=== PATIENT | male | born 1955 | race Caucasian/White ===

== ENCOUNTER 2018-02-03 08:57 | Outpatient (RCR) | payer BC ==
[~2018-02-03 08:57] MED LIST: DABI150C PO
== END 2018-02-27 | disposition home or self-care (01) ==
LOC: CARD 08:57
PROVIDERS: ATTEND Internal Medicine Cardiovascular Disease
DX: I10 Essential (primary) hypertension (principal); I48.0 Paroxysmal atrial fibrillation; E78.2 Mixed hyperlipidemia; E78.5 Hyperlipidemia, unspecified; R09.89 Other specified symptoms and signs involving the circulatory and respiratory systems
CPT/HCPCS: 93225; 93226

== ENCOUNTER → 2018-02-18 | Outpatient (CLI) | payer BC ==
[~2018-02-18] MED LIST changes: +CETI10TA17 PO; +LOSA1TAB20 PO
== END ==
LOC: CARD 08:55
PROVIDERS: ATTEND Internal Medicine Cardiovascular Disease
DX: I10 Essential (primary) hypertension (principal); I48.0 Paroxysmal atrial fibrillation; E78.2 Mixed hyperlipidemia; R09.89 Other specified symptoms and signs involving the circulatory and respiratory systems
CPT/HCPCS: 93306

== ENCOUNTER 2018-03-01 05:49 | Outpatient (CLI) | payer BC ==
[~2018-03-01] VITALS: Ht 167.6 cm; Wt 68.9 kg
[~2018-03-01 05:49] MED LIST changes: -CETI10TA17 PO; -LOSA1TAB20 PO
[2018-03-01] MEDS ORDERED: LOSA1TAB20 PO (09:59)
[2018-03-01] MEDS ORDERED: CETI10TA17 PO (09:59)
== END 2018-03-01 10:03 | disposition home or self-care (01) ==
LOC: PREOP 05:49
PROVIDERS: ATTEND Surgery
DX: Z01.818 Encounter for other preprocedural examination (principal)

== ENCOUNTER 2018-03-02 09:53 | Day surgery (SDC) | payer BC ==
[~2018-03-02] VITALS: Ht 167.6 cm; Wt 68.9 kg
[~2018-03-02 09:53] MED LIST changes: +CETI10TA17 PO; +LOSA1TAB20 PO
[2018-03-02] MEDS ORDERED: LACTATED RINGERS 1,000 ML IV ONE (09:57)
--- OUTSIDE RECORDS SUMMARY | 2018-03-02 09:57 | XMS REPORT | Continuity of Care Document ---
Author Author [facility] Organization [facility] Address Unknown Phone Unavailable Allergies Active Description Code Type Severity Reaction Onset Reported/Identified Relationship to Patient Clinical Status Yes aspirin [id number] Drug Allergy Unknown HIVES 09/04/2013 Medications There is no data. Problems Date Dx Coded Attending Type Code Diagnosis Diagnosed By 09/06/2013 HARRIETT BERMUDEZ MD Ot 272.4 HYPERLIPIDEMIA NEC/NOS 09/06/2013 HARRIETT BERMUDEZ MD Ot 401.9 HYPERTENSION NOS 09/06/2013 HARRIETT BERMUDEZ MD Ot 427.31 ATRIAL FIBRILLATION 09/06/2013 HARRIETT BERMUDEZ MD Ot 433.10 CAROTID ARTERY OCCLUSION W O CEREBRAL IN 09/06/2013 HARRIETT BERMUDEZ MD Ot 785.1 PALPITATIONS 02/03/2018 HARIRETT BERMUDEZ MD Ot 427.31 ATRIAL FIBRILLATION 02/11/2018 HARRIETT BERMUDEZ MD Ot 427.31 ATRIAL FIBRILLATION 02/11/2018 HARRIETT BERMUDEZ MD, Ot E78.2 MIXED HYPERLIPIDEMIA 02/11/2018 HARRIETT BERMUDEZ MD Ot E78.5 HYPERLIPIDEMIA, UNSPECIFIED 02/11/2018 HARRIETT BERMUDEZ MD Ot I10 ESSENTIAL (PRIMARY) HYPERTENSION 02/11/2018 HARRIETT BERMUDEZ MD Ot I48.0 PAROXYSMAL ATRIAL FIBRILLATION 02/11/2018 HARRIETT BERMUDEZ MD Ot R09.89 OT SYMPTOMS AND SIGNS INVOLVING THE CIR Procedures Code Description Performed By Performed On 99.62 HEART COUNTERSHOCK NEC 09/05/2013 Results There is no data. Encounters ACCT No. Visit Date/Time Discharge Status Pt. Type Provider Facility Loc./Unit Complaint [id number] 02/18/2018 08:55:00 02/18/2018 23:59:59 CLS Outpatient HARRIETT BERMUDEZ MD [facility] CARD I10 HTN [id number] 02/03/2018 08:57:00 02/03/2018 23:59:59 CLS Outpatient HARRIETT BERMUDEZ MD [facility] CARD I10 HTN [id number] 09/19/2013 11:46:00 09/19/2013 23:59:59 CLS Outpatient HARRIETT BERMUDEZ MD [facility] RAD AFIB [id number] 09/04/2013 16:51:00 09/06/2013 12:18:00 DIS Inpatient HARRIETT BERMUDEZ MD [facility] ICU AFIB/RVR [id number] 02/03/2018 08:58:00 Document Registration
[2018-03-02 10:05] VITALS: BP 134/86
[2018-03-02] MEDS ORDERED: LACTATED RINGERS 1,000 ML IV STA (10:06)
[2018-03-02] MEDS ORDERED: PROPOFOL INJECTION 50 ML IV ONE (10:09)
[2018-03-02] MEDS ORDERED: MIDAZOLAM 2 MG/2 ML (VERSED) VIAL ONE (10:18)
--- NOTE | 2018-03-02 10:47 | Progress Note-Pre Operative ---
Pre-Operative Progress Note H&P Reviewed The H&P was reviewed, patient examined and no changes noted. Time Seen by Provider: 10:41 Date H&P Reviewed: Mar 02, 2018 Time H&P Reviewed: 10:42 Pre-Operative Diagnosis: Screening Colonoscopy HENRRY PERSON DO Mar 02, 2018 10:47
--- NOTE | 2018-03-02 11:24 | Progress Note-Post Operative ---
Post-Operative Progess Note Surgeon (s)/House Director (s) Surgeon HENRRY PERSON DO House Director: none Pre-Operative Diagnosis Screening Colonoscopy Post-Operative Diagnosis Diverticula Internal Hemorrhoids Ext hemorrhoidal skin tag Procedure & Operative Findings Date of Procedure 03/02/18 Procedure Performed/Findings Colonoscopy Anesthesia Type IV sedation by PROPERTY CUSTODIAN Estimated Blood Loss Estimated blood loss (mL): none Specimens/Packing Specimens Removed none HENRRY PERSON DO Mar 02, 2018 11:23
--- NOTE | 2018-03-02 11:25 | Endoscopy Discharge Instruct ---
Endo Procedure/Findings Findings 1.: Diverticulosis 2.: Internal Hemorrhoids Discharge Instructions - Activity: You might feel a little sleepy until tomorrow. This is due to the medicine you received to relax you. Until tomorrow, you should: NOT drive a car, operate machinery or power tools. NOT drink any alcoholic beverages. NOT make any important decisions or sign importortant papers. Do not return to work until tomorrow, unless otherwise instructed. Resume previous activities tomorrow. Diet: Start by taking liquids. If you tolerate liquids, advance to solid food. make an appointment for one week Instructions: 2.: Colonscopy in 10 years (unless anything changes) Notify Physician - If you experience excessive bleeding, unusual abdominal pain, fever, or chest pain, contact your doctor immediately. Follow-Up: - I have received and understand the above instructions and will call my doctor if I have any further questions. Patient Signature Date Nurse Signature Other (Relationship) HENRRY PERSON DO Mar 02, 2018 11:25
[2018-03-02 11:35] VITALS: BP 119/76
[2018-03-02 12:05] VITALS: BP 139/81
[2018-03-02 12:10] VITALS: BP 139/81
--- NOTE | 2018-03-02 14:14 | Anesthesia-General Post-Op ---
MAC Patient Condition Mental Status/LOC: Same as Preop Cardiovascular: Satisfactory Nausea/Vomiting: Absent Respiratory: Satisfactory Pain: Controlled Complications: Absent Post Op Complications Complications None Follow Up Care/Instructions Patient Instructions None needed. Anesthesiology Discharge Order Discharge Order Patient is doing well, no complaints, stable vital signs, no apparent adverse anesthesia problems. No complications reported per nursing. CHRISTOPHER JOSHI CRNA Mar 02, 2018 14:14
--- NOTE | 2018-03-02 17:54 | OPERATIVE REPORT ---
DATE OF SERVICE: 03/02/2018 PREOPERATIVE DIAGNOSIS: Screening colonoscopy. POSTOPERATIVE DIAGNOSES: 1. Diverticula. 2. Internal hemorrhoids. 3. External hemorrhoidal skin tag. SURGEON: Laron Salazar DO CATHETER FINISHER AND INSPECTOR: None. ANESTHESIA: IV sedation by the HOG RIBBER. SPECIMENS: None. BLOOD LOSS: None. FLUIDS: Per anesthesia. POSTOPERATIVE CONDITION: Stable. INDICATION FOR PROCEDURE: The patient is a 62-year-old male who needed a screening colonoscopy. FINDINGS: The patient had some small diverticula in the left side of the colon and he had some grade I to II internal hemorrhoids as well as one external hemorrhoidal skin tag. No obvious pathology seen. PROCEDURE NOTE: After informed consent was obtained, the patient was brought to the endoscopy suite and placed in the bed in left lateral decubitus position. He was administered IV sedation by the HOG RIBBER, who then monitored his vitals the entire time, heart rate, blood pressure and pulse ox and the scope was inserted, pushed all the way to about 140 cm, able to get to the cecum, took a picture of appendiceal orifice and then slowly withdrew the scope insufflating to look circumferentially at the cyr looking at the cecum up the ascending colon to the hepatic flexure, then down the transverse colon, the splenic flexure, into the descending colon and through the descending colon and the sigmoid colon saw a couple of small diverticula, took pictures of this and then continued pulling out down into the rectum, retroflexed in the rectal vault, saw some grade I to II internal hemorrhoids, took a picture of this and then removed the scope. I also took a picture of the external hemorrhoidal skin tag. The patient tolerated the procedure. He was recovered in the endoscopy suite. Job ID: [id number] DocumentID: [id number] Dictated Date: 03/02/2018 15:08:41 [employer] Date: 03/02/2018 17:53:29 Dictated By: LARON SALAZAR DO [facility]
== END 2018-03-02 12:10 | disposition home or self-care (01) ==
LOC: ENDO 09:53
PROVIDERS: ATTEND Surgery
DX: Z12.11 Encounter for screening for malignant neoplasm of colon (principal); K57.30 Diverticulosis of large intestine without perforation or abscess without bleeding; K64.1 Second degree hemorrhoids; K64.4 Residual hemorrhoidal skin tags; E78.2 Mixed hyperlipidemia; I48.0 Paroxysmal atrial fibrillation; I10 Essential (primary) hypertension; R09.89 Other specified symptoms and signs involving the circulatory and respiratory systems; Z79.899 Other long term (current) drug therapy

== ENCOUNTER → 2020-01-25 | Outpatient (CLI) | payer MEDICARE | LOC: LAB 10:52 | PROVIDERS: ATTEND Internal Medicine | DX: D64.9 Anemia, unspecified (principal) | CPT/HCPCS: 36415; 85007; 85027; 85045 ==

== ENCOUNTER → 2020-07-22 | Outpatient (CLI) | payer MEDICARE | LOC: CARD 10:57 | PROVIDERS: ATTEND Physician Assistant | DX: I10 Essential (primary) hypertension (principal) | CPT/HCPCS: 93306 ==

== ENCOUNTER → 2020-07-24 | Day surgery (SDC) | payer MEDICARE ==
[~2020-07-24] VITALS: Ht 168 cm; Wt 75.0 kg
[~2020-07-24] MED LIST changes: +LIDOCAINE 1% INJ 20 ML 20 ML VIAL INJ ONE; +LIDOCAINE 1% INJ 20 ML 20 ML VIAL ONE
[2020-07-24 09:53] VITALS: BP 151/101
--- NOTE | 2020-07-24 10:28 | Implantation of Loop Monitor ---
Implant of Loop Monitior IMPLANTATION OF LOOP MONITOR REPORT DATE OF PROCEDURE: 07/24/20 PREOP DIAGNOSIS: Paroxysmal atrial fibrillation POSTOP DIAGNOSIS: Paroxysmal atrial fibrillation PROCEDURE DETAILS: The patient is a 65 male with history of paroxysmal atrial fibrillation requiring long-term surveillance. Therefore implantable loop recorder was discussed and agreed with the patient. Informed consent was taken. All risks and complications were discussed at length. The patient was draped and prepped in the usual sterile fashion. Local anesthesia was lidocaine, which was given in the substernal area close to the 4th intercostal space. Loop monitor [employer] with serial number [id number] was implanted according to the protocol. Steri- Strips were placed at the end of the procedure. There were no complications and the patient tolerated the procedure well. The device was interrogated with a voltage of. ANESTHESIA: Local anesthesia with lidocaine. COMPLICATIONS: None CONTRAST/FLUOROSCOPY: None CONCLUSION: Successful implantation of fluid monitor with no complication FINAL DIAGNOSIS: Paroxysmal atrial fibrillation Palpitation Hypertension HARRIETT BERMUDEZ MD Jul 24, 2020 10:28 am
== END ==
LOC: CATH 09:26
PROVIDERS: ATTEND Internal Medicine Cardiovascular Disease
DX: I48.0 Paroxysmal atrial fibrillation (principal); I10 Essential (primary) hypertension; E78.2 Mixed hyperlipidemia; I65.29 Occlusion and stenosis of unspecified carotid artery; Z79.899 Other long term (current) drug therapy; Z88.5 Allergy status to narcotic agent; Z85.038 Personal history of other malignant neoplasm of large intestine
CPT/HCPCS: 33285; C1764

== ENCOUNTER → 2021-03-12 | Outpatient (CLI) | payer MEDICARE ==
[~2021-03-12] MED LIST changes: +CATHETER FLUSH 10 ML SYR IV PRN; -LIDOCAINE 1% INJ 20 ML 20 ML VIAL INJ ONE; -LIDOCAINE 1% INJ 20 ML 20 ML VIAL ONE; +REGADENOSON 0.4 MG/5 ML SYR (LEXISCAN) IV ONE
[2021-03-12 12:58] VITALS: BP 131/84
--- NOTE | 2021-03-13 08:14 | Cardiology Stress Test Report ---
Stress Test Report Date of Procedure/Referring: Date of Procedure: Mar 12, 2021 PCP Sugar Britton MD Admitting Physician José Manuel Davies MD Indications: HTN Baseline Heart Rate: 59 Baseline Blood Pressure: Blood Pressure Systolic: 131 Blood Pressure Diastolic: 84 Baseline Vitals Vital Signs Date Time Temp Pulse Resp B/P (MAP) Pulse Ox O2 Delivery O2 Flow Rate FiO2 03/12/21 12:58 54 18 131/84 (100) 98 Room Air Baseline EKG: Baseline EKG: NSR Summary After explaining the procedure to the patient, he signed a consent and then brought to the stress nuclear laboratory. Patient received 0.4 mg Lexiscan for stress test, ECG, heart rate and blood pressure were monitored continuously. Resting and stress dose of radio tracer were injected, imaging was acquired and reviewed in short axis, horizontal long axis and vertical long axis views. TID: 1.05 SSS: 1 SDS: 1 EF: 53 1. Patient tolerated Lexiscan well 2. No significant ischemia or infarction on SPECT images 3. Normal left ventricular size, ejection fraction 53% Copy Copies To 1: JOSÉ MANUEL DAVIES MD, BASHAR J MD Mar 13, 2021 08:14
== END ==
LOC: CARD 12:15
PROVIDERS: ATTEND Internal Medicine Cardiovascular Disease
DX: I10 Essential (primary) hypertension (principal)
CPT/HCPCS: 78452; 93017; A9502

== ENCOUNTER → 2022-08-13 | Outpatient (CLI) | payer MEDICARE ==
[~2022-08-13] MED LIST changes: -CATHETER FLUSH 10 ML SYR IV PRN; -REGADENOSON 0.4 MG/5 ML SYR (LEXISCAN) IV ONE
== END ==
LOC: CARD 11:00
PROVIDERS: ATTEND Physician Assistant
DX: I34.0 Nonrheumatic mitral (valve) insufficiency (principal); I10 Essential (primary) hypertension
CPT/HCPCS: 93306